=== PATIENT | female | born 1945 | race African-American/Black ===

== ENCOUNTER 2016-10-30 13:37 | Emergency (ER) | payer MEDICARE ==
[2015-11-10 10:41] VITALS: BMI 25.0
[~2016-10-30 13:37] MED LIST: CARAFATE1 G PO; COLACE100 MG PO; CYMBALTA30 MG PO; CYMBALTA60 MG PO; DURAGESIC1 PATCH .7 TRANSDERM; EZFE 200200 MG PO; GLUCOPHAGE500 MG PO; HYZAAR 50-12.51 TAB PO; K-TAB10 MEQ PO; KLONOPIN1 MG PO; LINZESS145 MCG PO; MIRALAX17 GM PO; NORVASC10 MG PO; PERCOCET 10/3251 TA1 PO; PREDNISONE5 MG PO; PRILOSEC20 MG PO; VITAMIN D50000 UNIT PO; XANAX1 MG PO; ZOFRAN8 MG PO
[2016-10-30 14:49] LABS: BASOPHILS 0.3 % (0.0-2.0); EOSINOPHILS 0.6 % (0-7); HEMATOCRIT 40.8 % (36.0-48.0); HEMOGLOBIN 13.1 g/dL (12-16); IMMATURE GRANULOCYTES 0.3 % (0-5); LYMPHOCYTES 27.4 % (15-50); MCH 29.9 pg (26.0-34.0); MCHC 32.1 g/dL (31.0-37.0); MCV 93.2 fL (80.0-100.0); MEAN PLATELET VOLUME 11.1 fL (7.4-10.4); MONOCYTES 6.3 % (2-11); NEUTROPHILS 65.1 % (40-80); PLATELET COUNT 205 10x3/uL (130-400); RBC 4.38 10x6/uL (4.00-5.40); RDW 15.2 % (11.5-14.5); WBC 6.3 10x3/uL (4.8-10.8)
[2016-10-30 15:03] LABS: ALBUMIN 3.9 g/dL (3.4-5.0); ANION GAP 9.5 mmol/L (8-16); BILIRUBIN - TOTAL 0.27 mg/dL (0.2-1.3); CALCIUM 9.3 mg/dL (8.5-10.1); CARBON DIOXIDE 35.1 mmol/L (21.0-32.0); CREATININE - SERUM 0.9 mg/dL (0.6-1.3); POTASSIUM - SERUM 3.6 mmol/L (3.5-5.1); PROTEIN - SERUM 7.7 g/dL (6.4-8.2)
[2016-10-30 18:22] LABS: APPEARANCE CLEAR (CLEAR); BILIRUBIN NEGATIVE (NEGATIVE); COLOR YELLOW (YELLOW); GLUCOSE NEGATIVE (NEGATIVE); KETONE NEGATIVE (NEGATIVE); LEUKOCYTE ESTERASE NEGATIVE (NEGATIVE); NITRITE NEGATIVE (NEGATIVE); PROTEIN NEGATIVE (NEGATIVE); UROBILINOGEN NORMAL (NORMAL)
== END 2016-10-30 19:13 | disposition home or self-care (01) ==
LOC: D.ER 13:37
PROVIDERS: Emergency Medicine
DX: M54.5 Low back pain (principal); F17.200 Nicotine dependence, unspecified, uncomplicated

== ENCOUNTER 2016-12-08 13:28 | Emergency (ER) | payer MEDICARE ==
[2015-11-10 10:41] VITALS: BMI 25.0
[2016-12-08 14:00] LABS: HEMATOCRIT 39.7 % (36.0-48.0); LYMPHOCYTES 10.9 % (15-50); MCH 29.4 pg (26.0-34.0); MCHC 32.7 g/dL (31.0-37.0); MCV 89.8 fL (80.0-100.0); MEAN PLATELET VOLUME 9.7 fL (7.4-10.4); NEUTROPHILS 82.3 % (40-80); PLATELET COUNT 212 10x3/uL (130-400); RBC 4.42 10x6/uL (4.00-5.40); RDW 15.7 % (11.5-14.5); WBC 8.8 10x3/uL (4.8-10.8)
[2016-12-08 14:34] LABS: ALBUMIN 3.8 g/dL (3.4-5.0); ALKALINE PHOSPHATASE 88 U/L (46-116); AMYLASE - SERUM 88 U/L (25-115); BILIRUBIN - TOTAL 0.28 mg/dL (0.2-1.3); CALC OSMOLALITY 279 mosm/kg (275-300); CALCIUM 9.1 mg/dL (8.5-10.1); CARBON DIOXIDE 27.7 mmol/L (21.0-32.0); CHLORIDE - SERUM 103 mmol/L (98-107); CREATININE - SERUM 0.7 mg/dL (0.6-1.3); GLUCOSE 117 mg/dL (74-106); LIPASE 104 U/L (73-393); POTASSIUM - SERUM 4.6 mmol/L (3.5-5.1); PROTEIN - SERUM 7.7 g/dL (6.4-8.2); SODIUM 139 mmol/L (136-145); UREA NITROGEN 15 mg/dL (7-18); eGFR NON AFRICAN AMERICAN 87 mL/min (90-120)
[2016-12-08 14:43] LABS: ALT (SGPT) 23 U/L (10-68)
== END 2016-12-08 16:04 | disposition home or self-care (01) ==
LOC: D.ER 13:28
PROVIDERS: Emergency Medicine
DX: R11.10 Vomiting, unspecified (principal); M32.9 Systemic lupus erythematosus, unspecified; E11.9 Type 2 diabetes mellitus without complications; M06.9 Rheumatoid arthritis, unspecified

== ENCOUNTER 2017-05-22 23:05 | Emergency (ER) | payer MEDICARE ==
[2015-11-10 10:41] VITALS: BMI 25.0
== END 2017-05-23 01:41 | disposition home or self-care (01) ==
LOC: D.ER 23:05
DX: S40.011A Contusion of right shoulder, initial encounter (principal); W19.XXXA Unspecified fall, initial encounter; Y93.89 Activity, other specified; Y92.019 Unspecified place in single-family (private) house as the place of occurrence of the external cause; M32.9 Systemic lupus erythematosus, unspecified; E11.9 Type 2 diabetes mellitus without complications

== ENCOUNTER → 2017-08-07 14:44 | Outpatient (CLI) | payer MEDICARE ==
[2015-11-10 10:41] VITALS: BMI 25.0
== END | disposition home or self-care (01) ==
LOC: D.MAMMO 14:15
DX: Z12.31 Encounter for screening mammogram for malignant neoplasm of breast (principal)

== ENCOUNTER → 2017-09-22 11:22 | Outpatient (CLI) | payer MEDICARE ==
[2015-11-10 10:41] VITALS: BMI 25.0
== END | disposition home or self-care (01) ==
LOC: D.RAD 11:22
DX: R09.02 Hypoxemia (principal)

== ENCOUNTER 2018-02-27 20:39 | Inpatient (IN) | payer MEDICARE ==
[~2018-02-27] VITALS: Ht 167.6 cm; Wt 83.7 kg
[2018-02-27 21:37] LABS: APPEARANCE CLEAR (CLEAR); COLOR DK YELLOW (YELLOW)
[2018-02-27 21:38] LABS: BILIRUBIN NEGATIVE (NEGATIVE); GLUCOSE NEGATIVE (NEGATIVE); KETONE NEGATIVE (NEGATIVE); NITRITE NEGATIVE (NEGATIVE); PROTEIN TRACE mg/dL (NEGATIVE); UROBILINOGEN NORMAL (NORMAL)
[2018-02-27 21:41] LABS: WHITE CELLS - URINE 0-5 /hpf (0-5)
[2018-02-27 21:42] LABS: AMORPHOUS SEDIMENT <1+ /lpf (NONE SEEN); BACTERIA MODERATE /hpf (NONE SEEN); EPITHELIAL CELLS OCC /hpf (0-5); HYALINE CAST 0-5 /lpf (NONE SEEN); RED CELLS - URINE 0-5 /hpf (0-5)
[2018-02-27 21:53] LABS: BASOPHILS 0.6 % (0-2); EOSINOPHILS 1.1 % (0-7); HEMATOCRIT 39.2 % (36.0-48.0); HEMOGLOBIN 12.7 g/dL (12-16); IMMATURE GRANULOCYTES 0.5 % (0-5); LYMPHOCYTES 36.6 % (15-50); MCH 28.8 pg (26.0-34.0); MCHC 32.4 g/dL (31.0-37.0); MCV 88.9 fL (80.0-100.0); MEAN PLATELET VOLUME 10.5 fL (7.4-10.4); NEUTROPHILS 50.2 % (40-80); PLATELET COUNT 198 10x3/uL (130-400); RBC 4.41 10x6/uL (4.00-5.40); RDW 16.1 % (11.5-14.5); WBC 8.6 10x3/uL (4.8-10.8)
[2018-02-27 22:09] LABS: ALBUMIN 3.6 g/dL (3.4-5.0); ANION GAP 11.2 mmol/L (8-16); BILIRUBIN - TOTAL 0.32 mg/dL (0.2-1.3); CALCIUM 9.9 mg/dL (8.5-10.1); CARBON DIOXIDE 31.3 mmol/L (21.0-32.0); CREATININE - SERUM 2.3 mg/dL (0.6-1.3); POTASSIUM - SERUM 3.5 mmol/L (3.5-5.1); PROTEIN - SERUM 7.9 g/dL (6.4-8.2)
[2018-02-28] MEDS ORDERED: HYDROCODON-ACE1 EAC7 PO (00:48)
[2018-02-28] MEDS ORDERED: CYCLOBENZAPRINE10 MG PO (00:50)
[2018-02-28] MEDS ORDERED: CELEXA20 MG PO (00:53)
[2018-02-28] MEDS ORDERED: REQUIP0.25 MG PO (00:54)
[2018-02-28] MEDS ORDERED: SINGULAIR10 MG PO (00:55)
[2018-02-28] MEDS ORDERED: OMEPRAZOLE40 MG PO (00:55)
[2018-02-28] MEDS ORDERED: LASIX80 MG PO (00:56)
[2018-02-28] MEDS ORDERED: CATAPRES0.1 MG PO (00:57)
[2018-02-28 01:02] VITALS: BP 111/60; BMI 29.2
[2018-02-28 05:47] VITALS: BP 101/58
[2018-02-28 06:37] LABS: BASOPHILS 0.5 % (0-2); EOSINOPHILS 2.8 % (0-7); HEMOGLOBIN 12.5 g/dL (12-16); IMMATURE GRANULOCYTES 0.5 % (0-5); LYMPHOCYTES 44.5 % (15-50); MCH 28.9 pg (26.0-34.0); MCHC 32.1 g/dL (31.0-37.0); MCV 90.1 fL (80.0-100.0); MEAN PLATELET VOLUME 10.6 fL (7.4-10.4); MONOCYTES 8.7 % (2-11); PLATELET COUNT 185 10x3/uL (130-400); RBC 4.33 10x6/uL (4.00-5.40); RDW 16.4 % (11.5-14.5); WBC 7.9 10x3/uL (4.8-10.8)
[2018-02-28 07:13] LABS: ANION GAP 12.1 mmol/L (8-16); CALCIUM 9.7 mg/dL (8.5-10.1); CARBON DIOXIDE 29.3 mmol/L (21.0-32.0); CREATININE - SERUM 1.3 mg/dL (0.6-1.3); POTASSIUM - SERUM 3.4 mmol/L (3.5-5.1)
[2018-02-28 08:41] VITALS: BP 98/56
[2018-02-28 09:18] VITALS: Ht 167.6 cm; Wt 83.7 kg
[2018-02-28 11:48] VITALS: BP 105/52
[2018-02-28 16:20] VITALS: BP 105/48
[2018-02-28 20:00] VITALS: BP 134/77
[2018-03-01 00:08] VITALS: BP 128/75
[2018-03-01 04:00] VITALS: BP 132/72
[2018-03-01 05:07] LABS: ALBUMIN 2.8 g/dL (3.4-5.0); ANION GAP 8.1 mmol/L (8-16); BILIRUBIN - TOTAL 0.32 mg/dL (0.2-1.3); CALCIUM 8.4 mg/dL (8.5-10.1); CARBON DIOXIDE 32.6 mmol/L (21.0-32.0); POTASSIUM - SERUM 3.7 mmol/L (3.5-5.1); PROTEIN - SERUM 6.5 g/dL (6.4-8.2)
[2018-03-01 05:11] LABS: CREATININE - SERUM 0.8 mg/dL (0.6-1.3)
[2018-03-01 08:44] VITALS: BP 127/75
[2018-03-01 11:44] VITALS: BP 134/76
[2018-03-01 15:32] VITALS: BP 110/66
[2018-03-01 21:28] VITALS: BP 117/59
[2018-03-02 00:18] VITALS: BP 120/67
[2018-03-02 06:07] VITALS: BP 146/77
[2018-03-02 07:36] LABS: ALBUMIN 2.9 g/dL (3.4-5.0); ALKALINE PHOSPHATASE 62 U/L (46-116); ALT (SGPT) 10 U/L (10-68); BILIRUBIN - TOTAL 0.39 mg/dL (0.2-1.3); CALCIUM 8.7 mg/dL (8.5-10.1); CARBON DIOXIDE 29.9 mmol/L (21.0-32.0); CHLORIDE - SERUM 106 mmol/L (98-107); CREATININE - SERUM 0.7 mg/dL (0.6-1.3); POTASSIUM - SERUM 3.8 mmol/L (3.5-5.1); PROTEIN - SERUM 6.8 g/dL (6.4-8.2); SODIUM 144 mmol/L (136-145); eGFR NON AFRICAN AMERICAN 87 mL/min (90-120)
[2018-03-02 07:40] LABS: CALC OSMOLALITY 282 mosm/kg (275-300); GLUCOSE 69 mg/dL (74-106); UREA NITROGEN 8 mg/dL (7-18)
[2018-03-02 08:21] VITALS: BP 138/71
[2018-03-02] MEDS ORDERED: LASIX20 MG PO (10:15)
== END 2018-03-02 15:00 | disposition home or self-care (01) | DRG 684 ==
LOC: D.ER 20:39 → D.M2 23:24
PROVIDERS: Family Medicine; Internal Medicine Hematology
DX: N17.9 Acute kidney failure, unspecified (principal); E86.0 Dehydration; K59.00 Constipation, unspecified; E11.9 Type 2 diabetes mellitus without complications; I95.9 Hypotension, unspecified; F41.8 Other specified anxiety disorders; M32.9 Systemic lupus erythematosus, unspecified; Z72.0 Tobacco use; J45.909 Unspecified asthma, uncomplicated

== ENCOUNTER 2018-05-02 13:39 | Emergency (ER) | payer MEDICARE ==
[~2018-05-02] VITALS: Ht 167.6 cm; Wt 82.7 kg
[~2018-05-02 13:39] MED LIST changes: +CATAPRES0.1 MG PO; +CELEXA20 MG PO; +CYCLOBENZAPRINE10 MG PO; +HYDROCODON-ACE1 EAC7 PO; +LASIX20 MG PO; +LASIX80 MG PO; +OMEPRAZOLE40 MG PO; +REQUIP0.25 MG PO; +SINGULAIR10 MG PO
[2018-05-02 13:52] VITALS: BP 113/72; Ht 167.6 cm; Wt 82.7 kg
[2018-05-02] MEDS ORDERED: TORADOL10 MG PO (17:15)
[2018-05-02] MEDS ORDERED: ROBAXIN500 MG PO (17:15)
== END 2018-05-02 17:25 | disposition home or self-care (01) ==
LOC: D.ER 13:39
DX: S46.912A Strain of unspecified muscle, fascia and tendon at shoulder and upper arm level, left arm, initial encounter (principal); V79.9XXA Bus occupant (driver) (passenger) injured in unspecified traffic accident, initial encounter; Y93.89 Activity, other specified; Y92.410 Unspecified street and highway as the place of occurrence of the external cause; M54.16 Radiculopathy, lumbar region; M32.9 Systemic lupus erythematosus, unspecified; M62.830 Muscle spasm of back; E11.9 Type 2 diabetes mellitus without complications; I10 Essential (primary) hypertension; F17.200 Nicotine dependence, unspecified, uncomplicated

== ENCOUNTER → 2018-06-21 08:22 | Outpatient (CLI) | payer MEDICARE ==
[2018-05-02 13:52] VITALS: BMI 29.4
[~2018-06-21 08:22] MED LIST changes: +ROBAXIN500 MG PO; +TORADOL10 MG PO
== END | disposition home or self-care (01) ==
LOC: D.RAD 08:00
DX: K21.9 Gastro-esophageal reflux disease without esophagitis (principal); R13.10 Dysphagia, unspecified; R10.13 Epigastric pain

== ENCOUNTER → 2018-06-23 09:15 | Outpatient (CLI) | payer MEDICARE ==
[2018-05-02 13:52] VITALS: BMI 29.4
== END | disposition home or self-care (01) ==
LOC: D.RAD 09:15
DX: K92.1 Melena (principal); K59.09 Other constipation; R10.13 Epigastric pain

== ENCOUNTER → 2018-07-05 06:35 | Outpatient (CLI) | payer MEDICARE ==
[2018-05-02 13:52] VITALS: BMI 29.4
== END | disposition home or self-care (01) ==
LOC: D.RAD 06-30 09:30
DX: K92.1 Melena (principal); K59.09 Other constipation; R10.13 Epigastric pain

== ENCOUNTER → 2018-08-06 11:34 | Outpatient (CLI) | payer MEDICARE ==
[2018-05-02 13:52] VITALS: BMI 29.4
== END | disposition home or self-care (01) ==
LOC: D.RAD 11:34
DX: M47.27 Other spondylosis with radiculopathy, lumbosacral region (principal); M47.817 Spondylosis without myelopathy or radiculopathy, lumbosacral region; M47.9 Spondylosis, unspecified; G89.4 Chronic pain syndrome; Z79.891 Long term (current) use of opiate analgesic; Z79.899 Other long term (current) drug therapy

== ENCOUNTER 2018-09-02 07:21 | Emergency (ER) | payer MEDICARE ==
[~2018-09-02] VITALS: Ht 167.6 cm; Wt 81.8 kg
[2018-09-02 07:28] VITALS: BP 135/88; Ht 167.6 cm; Wt 81.8 kg
[2018-09-02] MEDS ORDERED: OXYCONTIN15 MG PO (07:29)
== END 2018-09-02 09:46 | disposition home or self-care (01) ==
LOC: D.ER 07:21
DX: G89.29 Other chronic pain (principal); F17.200 Nicotine dependence, unspecified, uncomplicated; E11.9 Type 2 diabetes mellitus without complications; I10 Essential (primary) hypertension; J44.9 Chronic obstructive pulmonary disease, unspecified

== ENCOUNTER 2018-10-22 06:54 | Inpatient (IN) | payer MEDICARE ==
[2018-10-22] VITALS (15 sets, daily range): BP systolic 136–167; BP diastolic 81–97; BMI 29.4
[~2018-10-22] VITALS: Ht 167.6 cm; Wt 83.0 kg
[~2018-10-22 06:54] MED LIST changes: +OXYCONTIN15 MG PO
[2018-10-22 07:42] LABS: BASOPHILS 0.5 % (0-2); HEMATOCRIT 35.3 % (36.0-48.0); HEMOGLOBIN 11.6 g/dL (12-16); IMMATURE GRANULOCYTES 0.9 % (0-5); LYMPHOCYTES 25.9 % (15-50); MCH 28.6 pg (26.0-34.0); MCHC 32.9 g/dL (31.0-37.0); MCV 87.2 fL (80.0-100.0); MEAN PLATELET VOLUME 10.2 fL (7.4-10.4); MONOCYTES 9.2 % (2-11); NEUTROPHILS 61.5 % (40-80); PLATELET COUNT 220 10x3/uL (130-400); RBC 4.05 10x6/uL (4.00-5.40); RDW 16.7 % (11.5-14.5); WBC 8.6 10x3/uL (4.8-10.8)
[2018-10-22 07:50] LABS: INR 0.92 (0.85-1.17); PROTIME 11.9 SECONDS (11.6-15.0)
[2018-10-22 07:51] LABS: APTT 29.7 SECONDS (22.8-39.4)
[2018-10-22 07:55] LABS: ALBUMIN 3.5 g/dL (3.4-5.0); ANION GAP 12.9 mmol/L (8-16); BILIRUBIN - TOTAL 0.29 mg/dL (0.2-1.3); CALCIUM 8.8 mg/dL (8.5-10.1); CARBON DIOXIDE 29.5 mmol/L (21.0-32.0); CREATININE - SERUM 0.9 mg/dL (0.6-1.3); POTASSIUM - SERUM 3.4 mmol/L (3.5-5.1); PROTEIN - SERUM 7.7 g/dL (6.4-8.2)
[2018-10-22 08:04] LABS: APPEARANCE CLEAR (CLEAR); BILIRUBIN NEGATIVE (NEGATIVE); COLOR YELLOW (YELLOW); GLUCOSE NEGATIVE (NEGATIVE); KETONE NEGATIVE (NEGATIVE); NITRITE NEGATIVE (NEGATIVE); PROTEIN NEGATIVE (NEGATIVE); UROBILINOGEN NORMAL (NORMAL)
--- NOTE | 2018-10-22 11:05 | NUR ---
REC'D VIA WHEEL CHAIR FROM ER PERSONNEL, SERGIOO, CONNECTED TO ICU MONITORS, VSS, DENIES PAIN, ASSESSMENT COMPLETE PER FLOWSHEET, C/O OF PAIN GENERALIZED, FENTANYL PATCH 25 MCG TO LEFT SHOULDER, NO OTHER MEDS HAVE BEEN RECONCILED BY MD AT THIS TIME, WILL CONTINUE WITH POC, PLANNING TO SEND EARRINGS TO LOCK UP, NO OTHER NEEDS AT THIS TIME
--- NOTE | 2018-10-22 13:45 | NUR ---
OXYCONTIN 10 MG PO GIVEN, PAIN GENERALIZED AT 8/10
--- NOTE | 2018-10-22 15:00 | NUR ---
SLEEPING WITH NO SIGNS OF DISTRESS, VSS, AROUSABLE TO VERBAL STIMULI, NO ACUTE CHANGE FROM PREVIOUS ASSESSMENT
--- NOTE | 2018-10-22 16:09 | MORECARE ---
CASE MANAGEMENT DISCHARGE SUMMARY PATIENT: STEPHEN REN UNIT: [id number] ADM DATE: 10/22/18 AGE: 73 : 45 SEX: F ROOM/BED: D.2304 AUTHOR: RASHARDDOC PHYSICIAN: REFERRING PHYSICIAN: RICKY TOSCANO MD DATE OF SERVICE: 10/22/18 Discharge Plan Patient Name: STEPHEN REN Facility: [facility]:[place] : 1945 Planned Disposition: Home Anticipated Discharge Date: Discharge Date: Expected LOS: Initial Reviewer: [email or web address] Initial Review Date: 10/22/2018 Generated: 10/22/18 5:08 pm Comments DCP- Discharge Planning Updated by [email or web address]: Merari Biggs on 10/22/18 3:[address] Patient Name: STEPHEN REN Admission Status: ER Accout number: [id number] Admission Date: 10-22-2018 : 1945 Admission Diagnosis: Attending: RICKY TOSCANO Current LOS: 1 Anticipated DC Date: Planned Disposition: Home Primary Insurance: MEDICARE A & B Discharge Planning Comments: CM met with patient at bedside. Patient states that she lives alone and plans on returning to her home upon discharge. Patient states that she has a walker and a cane at home. Patient states that she does have Home Health but doesn't remember which provider she is using. Patient stated that they (home health) was suppose to setting up someone to come out and assist with meals. Patient currently denies any discharge needs. CM will continue to follow and assist as needed with discharge planning / needs. Director Of Trauma: Merari Biggs DCPIA - Discharge Planning Initial Assessment Updated by [email or web address]: Merari Biggs on 10/22/18 4:02 pm * Is the patient Alert and Oriented? Yes * How many steps to enter\exit or inside your home? * PCP [facility] * Pharmacy [facility] * Preadmission Environment Home Alone * ADLs Partial Dependent * Partial ADLs (Assistance needed) Eating * Other Equipment WALKER, CANE * List name and contact numbers for known caregivers / representatives who currently or will assist patient after discharge: ORALIA HANNA [facility] [phone] * Verbal permission to speak to the caregivers and representatives has been obtained from the patient. N/A * Community resources currently utilized Home Health * Please name any agencies selected above. UNKNOWN PROVIDER * Additional services required to return to the preadmission environment? No * Can the patient safely return to the preadmission environment? Yes * Has this patient been hospitalized within the prior 30 days at any hospital? No Patient Name: STEPHEN REN Page 48295 at 1609 All edits/amendments must be made on the electronic document DICTATION DATE: 10/22/181607 DIESEL MECHANIC: JULIAN 10/22/181607 RPT#: [id number] DC DATE: STATUS: ADM IN [facility] [address] [place] [address] END OF REPORT
--- NOTE | 2018-10-22 17:30 | NUR ---
CLEAR LIQUID DIET TO BEDSIDE, INDEPENDENT WITH SET UP AND EATING
--- NOTE | 2018-10-22 19:00 | NUR ---
PUT PATIENT ON BEDPAN PT COMPLAINS OF PAIN -GENERALIZED AND BLADDER IRRITATION
[2018-10-22 19:12] LABS: BASOPHILS 0.3 % (0-2); EOSINOPHILS 0.9 % (0-7); HEMATOCRIT 35.6 % (36.0-48.0); HEMOGLOBIN 11.6 g/dL (12-16); IMMATURE GRANULOCYTES 0.6 % (0-5); MCH 28.4 pg (26.0-34.0); MCHC 32.6 g/dL (31.0-37.0); MEAN PLATELET VOLUME 10.6 fL (7.4-10.4); MONOCYTES 11.9 % (2-11); NEUTROPHILS 56.3 % (40-80); PLATELET COUNT 201 10x3/uL (130-400); RBC 4.09 10x6/uL (4.00-5.40); RDW 16.5 % (11.5-14.5); WBC 7.9 10x3/uL (4.8-10.8)
[2018-10-22 19:44] LABS: CALC OSMOLALITY 285 mosm/kg (275-300); CALCIUM 8.6 mg/dL (8.5-10.1); CARBON DIOXIDE 28.4 mmol/L (21.0-32.0); CHLORIDE - SERUM 106 mmol/L (98-107); CREATININE - SERUM 0.7 mg/dL (0.6-1.3); GLUCOSE 81 mg/dL (74-106); POTASSIUM - SERUM 3.6 mmol/L (3.5-5.1); SODIUM 144 mmol/L (136-145); eGFR NON AFRICAN AMERICAN 87 mL/min (90-120)
[2018-10-22 19:46] LABS: UREA NITROGEN 13 mg/dL (7-18)
--- NOTE | 2018-10-22 19:50 | NUR ---
RECEIVED PATIENT CARE SHIFT ASSESSMENT COMPLETED SEE FLOWSHEET - PT EDUCATION GIVEN REGARDING PAIN MEDICATION SCHEDULE.
--- NOTE | 2018-10-22 20:08 | NUR ---
PATIENT VALUABLES (EARRINGS) LOCKED UP AT THIS TIME
--- NOTE | 2018-10-22 21:07 | NUR ---
PT RESTING COMFORTABLY - DENIES NEEDS
--- NOTE | 2018-10-22 23:10 | NUR ---
REASSESSMENT COMPLETED, PT EASILY ROUSED, AAOX3 VSS CPOC
[2018-10-23] VITALS (14 sets, daily range): BP systolic 138–167; BP diastolic 82–98; Ht 167.6 cm; Wt 83.0 kg
--- NOTE | 2018-10-23 02:21 | NUR ---
PT RESTING COMOFORTABLY - EVEN RISE AND FALL OF CHEST NO APPARENT DISTRESS CPOC
[2018-10-23 04:03] LABS: BASOPHILS 0.4 % (0-2); EOSINOPHILS 1.4 % (0-7); HEMATOCRIT 35.6 % (36.0-48.0); HEMOGLOBIN 11.6 g/dL (12-16); IMMATURE GRANULOCYTES 0.8 % (0-5); LYMPHOCYTES 37.5 % (15-50); MCH 28.6 pg (26.0-34.0); MCHC 32.6 g/dL (31.0-37.0); MCV 87.7 fL (80.0-100.0); MONOCYTES 7.8 % (2-11); NEUTROPHILS 52.1 % (40-80); PLATELET COUNT 177 10x3/uL (130-400); RBC 4.06 10x6/uL (4.00-5.40); RDW 16.9 % (11.5-14.5); WBC 7.6 10x3/uL (4.8-10.8)
[2018-10-23 04:19] LABS: ALBUMIN 2.8 g/dL (3.4-5.0); ALKALINE PHOSPHATASE 69 U/L (46-116); ALT (SGPT) 13 U/L (10-68); BILIRUBIN - TOTAL 0.38 mg/dL (0.2-1.3); CALC OSMOLALITY 284 mosm/kg (275-300); CALCIUM 8.3 mg/dL (8.5-10.1); CARBON DIOXIDE 27.7 mmol/L (21.0-32.0); CHLORIDE - SERUM 107 mmol/L (98-107); CREATININE - SERUM 0.6 mg/dL (0.6-1.3); GLUCOSE 78 mg/dL (74-106); POTASSIUM - SERUM 3.5 mmol/L (3.5-5.1); PROTEIN - SERUM 6.3 g/dL (6.4-8.2); SODIUM 144 mmol/L (136-145); UREA NITROGEN 10 mg/dL (7-18); eGFR NON AFRICAN AMERICAN > 90 mL/min (90-120)
--- NOTE | 2018-10-23 07:00 | NUR ---
AWAKES EASILY TO VERBAL STIMULI SKIN WARM AND DRY. IV RIGHT AC WITHOUT REDNESS OR SWELLING INFUSING WITH NS AT KVO. MONITOR SR. 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 CLEAR LIQUID BREAKFAST SERVED
--- NOTE | 2018-10-23 09:00 | NUR ---
UP TO BEDSIDE COMMODE VOIDED. PO MEDS TAKEN NO DISTRESS
--- NOTE | 2018-10-23 10:16 | NUR ---
COMPLIANTS OF NAUSEA FROM MEDS. ZOFRAN GIVEN
--- NOTE | 2018-10-23 11:30 | NUR ---
NAPPING AT INTERVALS. AWAKES EASILY. LUNCH SERVED ATE 50 %.
--- NOTE | 2018-10-23 12:18 | NUR ---
REPORT CALLED TO IS[facility]. TRANSFERED TO ROOM 2217 PER WHEEL CHAIR TOLERATED WELL.
--- NOTE | 2018-10-23 14:48 | NUR ---
PT REQUESTED PAIN MEDICATION, ADMINISTERED PRN PAIN MEDICATION
--- NOTE | 2018-10-23 15:41 | NUR ---
PT LYING IN BED STATED SHE IS CONCERNED THAT SHE IS BLEEDING AGAIN, PT STATED SHE HAD A FEELING SHE MAY BE NEEDING TO HAVE A BM, WHEN SHE WENT IN IT WAS JUST GAS, PT STATED SHE WIPED AND NOTICED BLOOD ON THE WIPES, I EXAMINED WIPES AND NOTICED SCANT BLOOD ON WIPES WILL CALL DR FOR STOOL SOFTENERS PT STATES SHE HAS NOT HAD A BM SINCE THURSDAY
--- NOTE | 2018-10-23 20:30 | NUR ---
PT ALERT AND ORIENTED WHEN ENTERING THE ROOM. PT COMPLAINS OF HEADACHE. SPOKE WITH PATIENT ABOUT SCHEDULED OXY. PT VERBALIZES UNDERSTANDING. PT DENIES FURTHER COMPLAINTS. DEMONSTRATES HOW TO USE THE CALL LIGHT.
--- NOTE | 2018-10-24 04:59 | NUR ---
RN NOTE: AGREE WITH SAMPLE TAILOR ASSESSMENT.
[2018-10-24 06:32] VITALS: BP 148/83
[2018-10-24] MEDS ORDERED: AMITIZA24 MCG PO (08:46)
[2018-10-24] MEDS ORDERED: MIRALAX17 GM PO (08:46)
[2018-10-24] MEDS ORDERED: CHRONULAC30 ML PO (08:46)
[2018-10-24 09:40] VITALS: BP 145/84
--- NOTE | 2018-10-24 09:41 | MORECARE ---
CASE MANAGEMENT DISCHARGE SUMMARY PATIENT: STEPHEN REN UNIT: [id number] ADM DATE: 10/22/18 AGE: 73 : 45 SEX: F ROOM/BED: D.0662 AUTHOR: SHELBY WETZEL PHYSICIAN: REFERRING PHYSICIAN: RICKY TOSCANO MD DATE OF SERVICE: 10/24/18 Discharge Plan Patient Name: STEPHEN REN Facility: [facility]:[place] : 1945 Planned Disposition: Home Anticipated Discharge Date: 10/24/18 Discharge Date: Expected LOS: 2 Initial Reviewer: [email or web address] Initial Review Date: 10/22/2018 Generated: 10/24/18 10:41 am Comments DCP- Discharge Planning Updated by [email or web address]: Anitha Yepez on 10/24/18 8:[address] Patient Name: STEPHEN REN Encounter No: [id number] : 1945 Primary Insurance: MEDICARE A & B Anticipated DC Date: Planned Disposition: Home External Planned Provider: : DCP follow-up note: Patient and family in agreement with discharge plan. No changes to plan. Patient states has [facility], I faxed dc documents to them per patient request. Case management will follow and assist as needed. Anitha Yepez DCP- Discharge Planning Updated by [email or web address]: Merari Biggs on 10/22/18 3:[address] Patient Name: STEPHEN REN Admission Status: ER Accout number: [id number] Admission Date: 10-22-2018 : 1945 Admission Diagnosis: Attending: RICKY TOSCANO Current LOS: 1 Anticipated DC Date: Planned Disposition: Home Primary Insurance: MEDICARE A & B Discharge Planning Comments: CM met with patient at bedside. Patient states that she lives alone and plans on returning to her home upon discharge. Patient states that she has a walker and a cane at home. Patient states that she does have Home Health but doesn't remember which provider she is using. Patient stated that they (home health) was suppose to setting up someone to come out and assist with meals. Patient currently denies any discharge needs. CM will continue to follow and assist as needed with discharge planning / needs. Search Analyst: Merari Biggs DCPIA - Discharge Planning Initial Assessment Updated by [email or web address]: Merari Biggs on 10/22/18 4:02 pm * Is the patient Alert and Oriented? Yes * How many steps to enter\exit or inside your home? * PCP [facility] * Pharmacy [facility] * Preadmission Environment Home Alone * ADLs Partial Dependent * Partial ADLs (Assistance needed) Eating * Other Equipment WALKER, CANE * List name and contact numbers for known caregivers / representatives who currently or will assist patient after discharge: ORALIA HANNA [facility] [phone] * Verbal permission to speak to the caregivers and representatives has been obtained from the patient. N/A * Community resources currently utilized Home Health * Please name any agencies selected above. UNKNOWN PROVIDER * Additional services required to return to the preadmission environment? No * Can the patient safely return to the preadmission environment? Yes * Has this patient been hospitalized within the prior 30 days at any hospital? No External Providers External Provider: [facility] Next Contact Date: Service Request Date: Service Type: Resolution: Reviewer: Comments: Last DP export: 10/22/18 3:08 p Patient Name: STEPHEN REN Page 16197 at 0941 All edits/amendments must be made on the electronic document DICTATION DATE: 10/24/18939 BOBBIN PRESSER: JULIAN 10/24/18939 RPT#: [id number] DC DATE: STATUS: ADM IN [facility] [address] [place] [address] END OF REPORT
--- NOTE | 2018-10-26 17:18 | MORECARE ---
CASE MANAGEMENT DISCHARGE SUMMARY PATIENT: STEPHEN REN UNIT: [id number] ADM DATE: 10/22/18 AGE: 73 : 45 SEX: F ROOM/BED: D.0613 AUTHOR: SHELBY WETZEL PHYSICIAN: REFERRING PHYSICIAN: RICKY TOSCANO MD DATE OF SERVICE: 10/26/18 Discharge Plan Patient Name: STEPHEN REN Facility: [facility]:[place] : 1945 Planned Disposition: Home Anticipated Discharge Date: 10/24/18 Discharge Date: 10/24/2018 Expected LOS: 2 Initial Reviewer: [email or web address] Initial Review Date: 10/22/2018 Generated: 10/26/18 6:18 pm Comments DCP- Discharge Planning Updated by [email or web address]: Anitha Yepez on 10/24/18 8:[address] Patient Name: STEPHEN REN Encounter No: [id number] : 1945 Primary Insurance: MEDICARE A & B Anticipated DC Date: Planned Disposition: Home External Planned Provider: : DCP follow-up note: Patient and family in agreement with discharge plan. No changes to plan. Patient states has [facility], I faxed dc documents to them per patient request. Case management will follow and assist as needed. Anitha Yepez DCP- Discharge Planning Updated by [email or web address]: Merari Biggs on 10/22/18 3:[address] Patient Name: STEPHEN REN Admission Status: ER Accout number: [id number] Admission Date: 10-22-2018 : 1945 Admission Diagnosis: Attending: RICKY TOSCANO Current LOS: 1 Anticipated DC Date: Planned Disposition: Home Primary Insurance: MEDICARE A & B Discharge Planning Comments: CM met with patient at bedside. Patient states that she lives alone and plans on returning to her home upon discharge. Patient states that she has a walker and a cane at home. Patient states that she does have Home Health but doesn't remember which provider she is using. Patient stated that they (home health) was suppose to setting up someone to come out and assist with meals. Patient currently denies any discharge needs. CM will continue to follow and assist as needed with discharge planning / needs. Billiard Table Repairer: Merari Biggs DCPIA - Discharge Planning Initial Assessment Updated by [email or web address]: Merari Biggs on 10/22/18 4:02 pm * Is the patient Alert and Oriented? Yes * How many steps to enter\exit or inside your home? * PCP [facility] * Pharmacy [facility] * Preadmission Environment Home Alone * ADLs Partial Dependent * Partial ADLs (Assistance needed) Eating * Other Equipment WALKER, CANE * List name and contact numbers for known caregivers / representatives who currently or will assist patient after discharge: ORALIA HANNA [facility] [phone] * Verbal permission to speak to the caregivers and representatives has been obtained from the patient. N/A * Community resources currently utilized Home Health * Please name any agencies selected above. UNKNOWN PROVIDER * Additional services required to return to the preadmission environment? No * Can the patient safely return to the preadmission environment? Yes * Has this patient been hospitalized within the prior 30 days at any hospital? No Last DP export: 10/24/18 8:41 a Patient Name: STEPHEN REN Page 48157 at 1718 All edits/amendments must be made on the electronic document DICTATION DATE: 10/26/181716 TUBER HELPER: JULIAN 10/26/181716 RPT#: [id number] DC DATE:10/24/18 STATUS: DIS IN [facility] [address] [place] [address] END OF REPORT
== END 2018-10-24 10:25 | disposition home health service (06) | DRG 379 ==
LOC: D.ER 06:54 → D.ICU 09:33 → D.EDHOLD 09:33 → D.ICU 09:34 → D.MS 10-23 12:49
PROVIDERS: Emergency Medicine; Family Medicine; ADMIT Legal Medicine; ATTEND Legal Medicine
DX: K92.2 Gastrointestinal hemorrhage, unspecified (principal); M06.9 Rheumatoid arthritis, unspecified; I10 Essential (primary) hypertension; G89.29 Other chronic pain; M32.9 Systemic lupus erythematosus, unspecified; D64.9 Anemia, unspecified; K59.00 Constipation, unspecified; M79.7 Fibromyalgia; D50.0 Iron deficiency anemia secondary to blood loss (chronic)

== ENCOUNTER 2018-12-10 17:18 | Emergency (ER) | payer MEDICARE ==
[~2018-12-10] VITALS: Ht 167.6 cm; Wt 81.8 kg
[~2018-12-10 17:18] MED LIST changes: +AMITIZA24 MCG PO; +CHRONULAC30 ML PO
[2018-12-10 17:19] VITALS: Ht 167.6 cm; Wt 81.8 kg
[2018-12-10 20:28] VITALS: BP 145/77
== END 2018-12-10 20:28 | disposition home or self-care (01) ==
LOC: D.ER 17:18
DX: M25.552 Pain in left hip (principal); M16.12 Unilateral primary osteoarthritis, left hip

== ENCOUNTER 2018-12-20 15:34 | Emergency (ER) | payer MEDICARE ==
[~2018-12-20] VITALS: Ht 167.6 cm; Wt 80.9 kg
[2018-12-20 15:40] VITALS: Ht 167.6 cm; Wt 80.9 kg
[2018-12-20] MEDS ORDERED: TORADOL10 MG PO (18:56)
[2018-12-20 19:25] VITALS: BP 138/94
== END 2018-12-20 19:26 | disposition home or self-care (01) ==
LOC: D.ER 15:34
DX: M25.552 Pain in left hip (principal); M87.9 Osteonecrosis, unspecified; E11.9 Type 2 diabetes mellitus without complications; M32.9 Systemic lupus erythematosus, unspecified; Z79.52 Long term (current) use of systemic steroids

== ENCOUNTER 2019-01-21 06:13 | Emergency (ER) | payer MEDICARE ==
[~2019-01-21] VITALS: Ht 167.6 cm; Wt 84.5 kg
[2019-01-21 06:16] VITALS: Ht 167.6 cm; Wt 84.5 kg
[2019-01-21] MEDS ORDERED: OXYCONTIN10 MG PO (06:18)
[2019-01-21 07:10] VITALS: BP 126/75
== END 2019-01-21 07:10 | disposition home or self-care (01) ==
LOC: D.ER 06:13
DX: M54.5 Low back pain (principal)

== ENCOUNTER 2019-07-29 11:07 | Emergency (ER) | payer MEDICARE ==
[~2019-07-29] VITALS: Ht 167.6 cm; Wt 79.1 kg
[~2019-07-29 11:07] MED LIST changes: +OXYCONTIN10 MG PO
[2019-07-29 11:11] VITALS: Ht 167.6 cm; Wt 79.1 kg
[2019-07-29] MEDS ORDERED: ACETAMINOPHEN500 M1 PO (12:30)
[2019-07-29] MEDS ORDERED: CYCLOBENZAPRINE10 MG PO (12:30)
[2019-07-29] MEDS ORDERED: MEDROL DOSE PACK4 MG PO (12:30)
[2019-07-29 12:47] VITALS: BP 116/75
== END 2019-07-29 13:38 | disposition home or self-care (01) ==
LOC: D.ER 11:07
DX: M25.562 Pain in left knee (principal); M79.18 Myalgia, other site; J44.9 Chronic obstructive pulmonary disease, unspecified; I10 Essential (primary) hypertension; Z72.0 Tobacco use; G62.9 Polyneuropathy, unspecified; Z79.818 Long term (current) use of other agents affecting estrogen receptors and estrogen levels

== ENCOUNTER 2019-10-16 09:20 | Inpatient (IN) | payer MEDICARE ==
[~2019-10-16] VITALS: Ht 167.6 cm; Wt 78.9 kg
[~2019-10-16 09:20] MED LIST changes: +ACETAMINOPHEN500 M1 PO; +MEDROL DOSE PACK4 MG PO
[2019-10-16 10:39] LABS: BASOPHILS 0.4 % (0-2); EOSINOPHILS 0.6 % (0-7); HEMATOCRIT 39.8 % (36.0-48.0); HEMOGLOBIN 12.4 g/dL (12-16); IMMATURE GRANULOCYTES 0.9 % (0-5); LYMPHOCYTES 22.3 % (15-50); MCH 28.2 pg (26.0-34.0); MCHC 31.2 g/dL (31.0-37.0); MCV 90.7 fL (80.0-100.0); MEAN PLATELET VOLUME 10.4 fL (7.4-10.4); MONOCYTES 12.8 % (2-11); PLATELET COUNT 168 10x3/uL (130-400); RBC 4.39 10x6/uL (4.00-5.40); RDW 17.7 % (11.5-14.5)
[2019-10-16 10:48] LABS: CALC OSMOLALITY 277 mosm/kg (275-300); CALCIUM 8.6 mg/dL (8.5-10.1); CHLORIDE - SERUM 104 mmol/L (98-107); CREATININE - SERUM 0.6 mg/dL (0.6-1.3); GLUCOSE 79 mg/dL (74-106); POTASSIUM - SERUM 3.4 mmol/L (3.5-5.1); SODIUM 140 mmol/L (136-145); UREA NITROGEN 13 mg/dL (7-18); eGFR NON AFRICAN AMERICAN > 90 mL/min (90-120)
[2019-10-16 10:53] LABS: ALBUMIN 3.1 g/dL (3.4-5.0); ALKALINE PHOSPHATASE 63 U/L (30-120); ALT (SGPT) 17 U/L (10-68); BILIRUBIN - TOTAL 0.23 mg/dL (0.2-1.3); MAGNESIUM - SERUM 1.7 mg/dL (1.8-2.4); PROTEIN - SERUM 7.2 g/dL (6.4-8.2)
[2019-10-16 12:13] LABS: CKMB 23.7 U/L (0.0-3.6); PRO BNP 330 pg/mL (0-125)
[2019-10-16 12:14] LABS: TROPONIN-I < 0.017 ng/mL (0.000-0.060)
[2019-10-16] MEDS ORDERED: LIPITOR40 MG PO (16:48)
[2019-10-16] MEDS ORDERED: XANAX0.5 MG PO (16:50)
[2019-10-16 17:00] VITALS: BP 108/56; BMI 28.1
[2019-10-16 20:00] VITALS: BP 116/58
[2019-10-16] MEDS ORDERED: PERCOCET 10-321 EAC1 PO (20:07)
[2019-10-16] MEDS ORDERED: CATAPRES0.1 MG PO (20:12)
[2019-10-17] VITALS: BP 106/57
[2019-10-17 04:00] VITALS: BP 99/62
[2019-10-17 04:51] LABS: BASOPHILS 0.2 % (0-2); EOSINOPHILS 0 % (0-7); HEMATOCRIT 38.7 % (36.0-48.0); HEMOGLOBIN 12.3 g/dL (12-16); IMMATURE GRANULOCYTES 0.6 % (0-5); LYMPHOCYTES 16.3 % (15-50); MCH 28.2 pg (26.0-34.0); MCHC 31.8 g/dL (31.0-37.0); MCV 88.8 fL (80.0-100.0); MEAN PLATELET VOLUME 10.1 fL (7.4-10.4); MONOCYTES 11.4 % (2-11); NEUTROPHILS 71.5 % (40-80); PLATELET COUNT 183 10x3/uL (130-400); RBC 4.36 10x6/uL (4.00-5.40); RDW 17.5 % (11.5-14.5); WBC 6.4 10x3/uL (4.8-10.8)
[2019-10-17 05:07] LABS: ANION GAP 8.2 mmol/L (8-16); CALCIUM 8.3 mg/dL (8.5-10.1); POTASSIUM - SERUM 3.2 mmol/L (3.5-5.1)
[2019-10-17 05:37] LABS: CREATININE - SERUM 0.8 mg/dL (0.6-1.3)
[2019-10-17 08:23] VITALS: BP 121/58
[2019-10-17 12:18] VITALS: BP 116/56
[2019-10-17 13:08] VITALS: Ht 167.6 cm; Wt 78.9 kg
[2019-10-17 16:43] VITALS: BP 120/69
[2019-10-17 21:39] VITALS: BP 126/50
[2019-10-18 01:26] VITALS: BP 102/66
[2019-10-18 05:30] VITALS: BP 169/113
[2019-10-18 09:28] VITALS: BP 121/73
[2019-10-18 12:45] VITALS: BP 121/60
[2019-10-18 17:17] VITALS: BP 124/61
[2019-10-18 23:09] VITALS: BP 126/72
[2019-10-19 01:45] VITALS: BP 146/78
[2019-10-19 05:20] VITALS: BP 138/68
[2019-10-19 05:23] LABS: BASOPHILS 0.7 % (0-2); EOSINOPHILS 2.3 % (0-7); HEMATOCRIT 38.2 % (36.0-48.0); HEMOGLOBIN 11.9 g/dL (12-16); IMMATURE GRANULOCYTES 0.9 % (0-5); LYMPHOCYTES 37.4 % (15-50); MCH 28.1 pg (26.0-34.0); MCHC 31.2 g/dL (31.0-37.0); MCV 90.1 fL (80.0-100.0); MEAN PLATELET VOLUME 11.2 fL (7.4-10.4); MONOCYTES 12.6 % (2-11); NEUTROPHILS 46.1 % (40-80); PLATELET COUNT 218 10x3/uL (130-400); RBC 4.24 10x6/uL (4.00-5.40); RDW 17.4 % (11.5-14.5); WBC 4.4 10x3/uL (4.8-10.8)
[2019-10-19 05:47] LABS: CALC OSMOLALITY 282 mosm/kg (275-300); CALCIUM 8.2 mg/dL (8.5-10.1); CARBON DIOXIDE 35.4 mmol/L (21.0-32.0); CHLORIDE - SERUM 105 mmol/L (98-107); CREATININE - SERUM 0.7 mg/dL (0.6-1.3); GLUCOSE 86 mg/dL (74-106); POTASSIUM - SERUM 3.1 mmol/L (3.5-5.1); SODIUM 143 mmol/L (136-145); UREA NITROGEN 11 mg/dL (7-18); eGFR NON AFRICAN AMERICAN 87 mL/min (90-120)
[2019-10-19 09:04] VITALS: BP 135/74
--- NOTE | 2019-10-19 09:15 | MORECARE ---
CASE MANAGEMENT DISCHARGE SUMMARY PATIENT: STEPHEN REN UNIT: [id number] ADM DATE: 10/16/19 AGE: 74 : 45 SEX: F ROOM/BED: D.2131 AUTHOR: SHELBY WETZEL PHYSICIAN: REFERRING PHYSICIAN: RICKY TOSCANO MD DATE OF SERVICE: 10/19/19 Discharge Plan Patient Name: STEPHEN REN Facility: [facility]:[place] : 1945 Planned Disposition: Home Anticipated Discharge Date: Discharge Date: Expected LOS: Initial Reviewer: [email or web address] Initial Review Date: 10/16/2019 Generated: 10/19/19 10:14 am Comments DCP- Discharge Planning Updated by [email or web address]: Katie Hylton on 10/19/19 8:[address] Patient Name: STEPHEN REN Admission Status: Elective Accout number: [id number] Admission Date: 10-16-2019 : 1945 Admission Diagnosis: Attending: RICKY TOSCANO Current LOS: 3 Anticipated DC Date: Planned Disposition: Home Primary Insurance: MEDICARE A & B Discharge Planning Comments: CM met with patient to complete initial dc planning assessment. CM educated patient on the CM role and verbal consent given by patient to complete assessment. Patient lives at home with a friend where she is independent with her care. At discharge patient plans to return home and feels this is a safe discharge. CM discussed availability of home health, rehab services, and medical equipment. She has a walker that she uses sometimes. She stated that she would have someone take her home. Patient denied known discharge needs at this time. CM will continue to follow and will assist as needed with dc plans/needs. Kinesiotherapist: Katie Hylton DCPIA - Discharge Planning Initial Assessment Updated by [email or web address]: Katie Hylton on 10/19/19 9:11 am * Is the patient Alert and Oriented? Yes * How many steps to enter\exit or inside your home? * PCP [facility] * Pharmacy [facility] * Preadmission Environment Home Alone * ADLs Independent * Equipment Rolling Walker * List name and contact numbers for known caregivers / representatives who currently or will assist patient after discharge: ORALIA CYNDI (SISTER) [phone] * Verbal permission to speak to the caregivers and representatives has been obtained from the patient. N/A * Community resources currently utilized None * Additional services required to return to the preadmission environment? No * Can the patient safely return to the preadmission environment? Yes * Has this patient been hospitalized within the prior 30 days at any hospital? No Patient Name: STEPHEN REN Page 37691 at 0915 All edits/amendments must be made on the electronic document DICTATION DATE: 10/19/19913 MARINE SPECIALIST: JULIAN 10/19/19913 RPT#: [id number] DC DATE: STATUS: ADM IN [facility] [address] [place] [address] END OF REPORT
[2019-10-19 13:41] VITALS: BP 116/74
[2019-10-19 17:51] VITALS: BP 112/85
[2019-10-19 20:00] VITALS: BP 108/62
[2019-10-20] VITALS: BP 111/68
[2019-10-20 06:30] LABS: BASOPHILS 1.4 % (0-2); EOSINOPHILS 1.1 % (0-7); HEMOGLOBIN 12.7 g/dL (12-16); IMMATURE GRANULOCYTES 1.6 % (0-5); LYMPHOCYTES 39.8 % (15-50); MCH 28.3 pg (26.0-34.0); MCHC 31.8 g/dL (31.0-37.0); MCV 89.3 fL (80.0-100.0); MONOCYTES 14.8 % (2-11); NEUTROPHILS 41.3 % (40-80); PLATELET COUNT 202 10x3/uL (130-400); RBC 4.48 10x6/uL (4.00-5.40); RDW 17.3 % (11.5-14.5)
[2019-10-20 06:33] LABS: WBC 5.6 10x3/uL (4.8-10.8)
[2019-10-20 06:52] LABS: CALC OSMOLALITY 285 mosm/kg (275-300); CALCIUM 8.5 mg/dL (8.5-10.1); CARBON DIOXIDE 34.6 mmol/L (21.0-32.0); CHLORIDE - SERUM 104 mmol/L (98-107); CREATININE - SERUM 0.7 mg/dL (0.6-1.3); GLUCOSE 91 mg/dL (74-106); SODIUM 144 mmol/L (136-145); UREA NITROGEN 11 mg/dL (7-18); eGFR NON AFRICAN AMERICAN 87 mL/min (90-120)
[2019-10-20 08:47] VITALS: BP 114/57
[2019-10-20] MEDS ORDERED: ZITHROMAX250 MG PO ×2 (08:54→10:35)
--- NOTE | 2019-10-20 09:48 | MORECARE ---
CASE MANAGEMENT DISCHARGE SUMMARY PATIENT: STEPHEN REN UNIT: [id number] ADM DATE: 10/16/19 AGE: 74 : 45 SEX: F ROOM/BED: D.5900 AUTHOR: SHELBY WETZEL PHYSICIAN: REFERRING PHYSICIAN: RICKY TOSCANO MD DATE OF SERVICE: 10/20/19 Discharge Plan Patient Name: STEPHEN REN Facility: [facility]:[place] : 1945 Planned Disposition: Home Anticipated Discharge Date: Discharge Date: Expected LOS: Initial Reviewer: [email or web address] Initial Review Date: 10/16/2019 Generated: 10/20/19 10:48 am Comments DCP- Discharge Planning Updated by [email or web address]: Katie Hylton on 10/20/19 8:[address] PATIENT WITH DC ORDERS, IMM SERVED AND EXPLAINED. SHE WILL NEED A NEBULIZER AT DC [facility] SIGNED [facility]O FANG/ MARAH. CM WILL CONTINUE TO FOLLOW AND ASSIST NEEDED. I WILL CONTACT [facility] AND HAVE IT DELIVERED DCP- Discharge Planning Updated by [email or web address]: Katie Hylton on 10/19/19 8:[address] Patient Name: STEPHEN REN Admission Status: Elective Accout number: [id number] Admission Date: 10-16-2019 : 1945 Admission Diagnosis: Attending: RICKY TOSCANO Current LOS: 3 Anticipated DC Date: Planned Disposition: Home Primary Insurance: MEDICARE A & B Discharge Planning Comments: CM met with patient to complete initial dc planning assessment. CM educated patient on the CM role and verbal consent given by patient to complete assessment. Patient lives at home with a friend where she is independent with her care. At discharge patient plans to return home and feels this is a safe discharge. CM discussed availability of home health, rehab services, and medical equipment. She has a walker that she uses sometimes. She stated that she would have someone take her home. Patient denied known discharge needs at this time. CM will continue to follow and will assist as needed with dc plans/needs. Production Editor: Katie Hylton DCPIA - Discharge Planning Initial Assessment Updated by [email or web address]: Katie Hylton on 10/19/19 9:11 am * Is the patient Alert and Oriented? Yes * How many steps to enter\exit or inside your home? * PCP [facility] * Pharmacy [facility] * Preadmission Environment Home Alone * ADLs Independent * Equipment Rolling Walker * List name and contact numbers for known caregivers / representatives who currently or will assist patient after discharge: ORALIA HANNA (SISTER) [phone] * Verbal permission to speak to the caregivers and representatives has been obtained from the patient. N/A * Community resources currently utilized None * Additional services required to return to the preadmission environment? No * Can the patient safely return to the preadmission environment? Yes * Has this patient been hospitalized within the prior 30 days at any hospital? No Coverage Notice Reviewer: [email or web address] Inna Hylton Notice Issued Date-Time: 10/20/2019 9:00 Notice Type: IM Discharge Notice Notice Delivered To: Patient Relationship to Patient: Temporary Receptionist Name: Delivery Method: HAND - Hand Delivered Kayla Days: Prior Verbal Notification: Recipient Understood Notice: Yes Recipient Signature: Yes Med Rec Note Co-signed by Attending: Coverage Notice Comment: Reviewer: [id number] Hylton Notice Issued Date-Time: 10/20/2019 9:00 Notice Type: Patient Choice Letter Notice Delivered To: Patient Relationship to Patient: Temporary Receptionist Name: Delivery Method: HAND - Hand Delivered Kayla Days: Prior Verbal Notification: Recipient Understood Notice: Yes Recipient Signature: Yes Med Rec Note Co-signed by Attending: Coverage Notice Comment: [facility] FOR [facility] FANG/MARAH Last DP export: 10/19/19 8:15 a Patient Name: STEPHEN REN Page 75601 at 0948 All edits/amendments must be made on the electronic document DICTATION DATE: 10/20/19947 TACK WELDER: JULIAN 10/20/19947 RPT#: [id number] DC DATE: STATUS: ADM IN [facility] [address] [place] [address] END OF REPORT
[2019-10-20] MEDS ORDERED: IPRAT-ALBUT 0.5-3 ML UPD (10:11)
[2019-10-20 11:47] VITALS: BP 101/70
--- NOTE | 2019-10-21 11:29 | MORECARE ---
CASE MANAGEMENT DISCHARGE SUMMARY PATIENT: STEPHEN REN UNIT: [id number] ADM DATE: 10/16/19 AGE: 74 : 45 SEX: F ROOM/BED: D.0820 AUTHOR: SHELBY WETZEL PHYSICIAN: REFERRING PHYSICIAN: RICKY TOSCANO MD DATE OF SERVICE: 10/21/19 Discharge Plan Patient Name: STEPHEN REN Facility: [facility]:[place] : 1945 Planned Disposition: Home Anticipated Discharge Date: Discharge Date: 10/20/2019 Expected LOS: 0 Initial Reviewer: [email or web address] Initial Review Date: 10/16/2019 Generated: 10/21/19 12:28 pm Comments DCP- Discharge Planning Updated by [email or web address]: Katie Hylton on 10/20/19 8:[address] PATIENT WITH DC ORDERS, IMM SERVED AND EXPLAINED. SHE WILL NEED A NEBULIZER AT DC [facility] SIGNED [facility]/ MARAH. CM WILL CONTINUE TO FOLLOW AND ASSIST NEEDED. I WILL CONTACT [facility] AND HAVE IT DELIVERED DCP- Discharge Planning Updated by [email or web address]: Katie Hylton on 10/19/19 8:[address] Patient Name: STEPHEN REN Admission Status: Elective Accout number: [id number] Admission Date: 10-16-2019 : 1945 Admission Diagnosis: Attending: RICKY TOSCANO Current LOS: 3 Anticipated DC Date: Planned Disposition: Home Primary Insurance: MEDICARE A & B Discharge Planning Comments: CM met with patient to complete initial dc planning assessment. CM educated patient on the CM role and verbal consent given by patient to complete assessment. Patient lives at home with a friend where she is independent with her care. At discharge patient plans to return home and feels this is a safe discharge. CM discussed availability of home health, rehab services, and medical equipment. She has a walker that she uses sometimes. She stated that she would have someone take her home. Patient denied known discharge needs at this time. CM will continue to follow and will assist as needed with dc plans/needs. Cut Off Saw Set Up Operator: Katie Hylton DCPIA - Discharge Planning Initial Assessment Updated by [email or web address]: Katie Hylton on 10/19/19 9:11 am * Is the patient Alert and Oriented? Yes * How many steps to enter\exit or inside your home? * PCP [facility] * Pharmacy [facility] * Preadmission Environment Home Alone * ADLs Independent * Equipment Rolling Walker * List name and contact numbers for known caregivers / representatives who currently or will assist patient after discharge: ORALIA HANNA (SISTER) [phone] * Verbal permission to speak to the caregivers and representatives has been obtained from the patient. N/A * Community resources currently utilized None * Additional services required to return to the preadmission environment? No * Can the patient safely return to the preadmission environment? Yes * Has this patient been hospitalized within the prior 30 days at any hospital? No Coverage Notice Reviewer: [email or web address] Inna Hylton Notice Issued Date-Time: 10/20/2019 9:00 Notice Type: IM Discharge Notice Notice Delivered To: Patient Relationship to Patient: Manager Business Name: Delivery Method: HAND - Hand Delivered Kayla Days: Prior Verbal Notification: Recipient Understood Notice: Yes Recipient Signature: Yes Med Rec Note Co-signed by Attending: Coverage Notice Comment: Reviewer: [email or web address] Hylton Notice Issued Date-Time: 10/20/2019 9:00 Notice Type: Patient Choice Letter Notice Delivered To: Patient Relationship to Patient: Manager Business Name: Delivery Method: HAND - Hand Delivered Kayla Days: Prior Verbal Notification: Recipient Understood Notice: Yes Recipient Signature: Yes Med Rec Note Co-signed by Attending: Coverage Notice Comment: [facility] FOR [facility]/MARAH Last DP export: 10/20/19 8:48 a Patient Name: STEPHEN REN Page 23919 at 1129 All edits/amendments must be made on the electronic document DICTATION DATE: 10/21/19 1128 RED HAT OPEN STACK ADMINISTRATOR: JULIAN 10/21/19 1128 RPT#: [id number] DC DATE:10/20/19 STATUS: DIS IN [facility] [address] [place] [address] END OF REPORT
== END 2019-10-20 14:40 | disposition home or self-care (01) | DRG 193 ==
LOC: D.ER 09:20 → D.MS 13:18
PROVIDERS: Emergency Medicine; ADMIT Legal Medicine; ATTEND Legal Medicine
DX: J11.00 Influenza due to unidentified influenza virus with unspecified type of pneumonia (principal); J81.0 Acute pulmonary edema; I10 Essential (primary) hypertension; J44.9 Chronic obstructive pulmonary disease, unspecified; E11.9 Type 2 diabetes mellitus without complications; M32.9 Systemic lupus erythematosus, unspecified; E87.6 Hypokalemia

== ENCOUNTER 2021-01-29 21:40 | Emergency (ER) | payer MEDICARE ==
[~2021-01-29] VITALS: Ht 167.6 cm; Wt 82.6 kg
[~2021-01-29 21:40] MED LIST changes: +CELEXA40 MG PO; +DECADRON4 MG PO; +IPRAT-ALBUT 0.5-3 ML UPD; +LASIX40 MG PO; +LIPITOR20 MG PO; +LIPITOR40 MG PO; +PERCOCET 10-321 EAC1 PO; +VIBRAMYCIN 100100 MG PO; +XANAX0.5 MG PO; +ZITHROMAX250 MG PO; +ZPAK PO
[2021-01-29 21:43] VITALS: Ht 167.6 cm; Wt 82.6 kg
[2021-01-30 00:36] VITALS: BP 127/83
== END 2021-01-30 00:36 | disposition home or self-care (01) ==
LOC: D.ER 21:40
DX: M25.572 Pain in left ankle and joints of left foot (principal); S70.02XA Contusion of left hip, initial encounter; S90.02XA Contusion of left ankle, initial encounter; S80.02XA Contusion of left knee, initial encounter; W19.XXXA Unspecified fall, initial encounter; E11.9 Type 2 diabetes mellitus without complications; I50.9 Heart failure, unspecified

== ENCOUNTER → 2021-02-27 13:46 | Outpatient (CLI) | payer MEDICARE ==
[2021-01-29 21:43] VITALS: BMI 29.6
== END | disposition home or self-care (01) ==
LOC: D.MRI 13:46
DX: M47.897 Other spondylosis, lumbosacral region (principal)